=== PATIENT | female | born 1945 | race Caucasian/White ===

== ENCOUNTER → 2018-09-09 07:47 | Outpatient (CLI) | payer OTHER, SELFPAY ==
--- NOTE | 2018-09-09 08:43 | US_ITS ---
PROCEDURE: ULTRASOUND GUIDED LEFT THYROID FNA/BIOPSY. DATE: September 09, 2018. INDICATION: Female, 73 years old. Thyroid nodules. PHYSICIAN: Stanley Mcdermott M.D. MEDICATIONS: 2% lidocaine administered subcutaneously for local anesthesia. ACCESS SITE: Left - anterior approach. NEEDLE: 25-gauge FNA needle. SPECIMEN: Multiple FNA specimen collected and given to pathology. EBL: None. COMPLICATIONS: None immediate. PROCEDURE: The risks, benefits, and alternatives to the procedure were explained to the patient. The specific risk of hemorrhage requiring further treatment or intervention was detailed and accepted. Written informed consent was obtained. The patient was brought into the ultrasound room and placed in the supine position on the stretcher. An appropriate entry site was identified. The overlying skin was prepped and draped in the usual sterile fashion. 2% lidocaine was administered subcutaneously for local anesthesia. Under ultrasound guidance, a 25-gauge FNA needle was advanced into the lesion. Aspiration was performed and the needle was withdrawn. A total of 3 passes were performed with specimen collected and given to the pathologist who was present during the procedure. Hemostasis was achieved with manual compression. Repeat ultrasound images of the biopsy area was performed which demonstrated no gross bleeding or hematoma. An antibiotic ointment dressing was placed and the patient was given an icepack. The patient tolerated the procedure well without immediate complications. The patient was discharged in stable condition. US/FNA 1st Biopsy w/ US IMPRESSION: Successful ultrasound-guided left thyroid nodule FNA/biopsy, as described above. Electronically Signed: Stanley Mcdermott, at 10:27 EDT , Service support ,
--- NOTE | 2018-09-09 09:20 | ASPIG_PTH ---
PATIENT: MARICRUZ MACKENZIE LOC: [facility] [[email or web address]]#:[id number] AGE/SX: 79/F ROOM: RE09/09/[address]: Dr. Joesph Garcia MD : 1945 BED: DIS: SPEC #: [id number] RECD: 09/09/18 09:40 STATUS: [place] #: [id number] ROXANNE: 09/09/18 09:[address]: Joesph Garcia DEPT: CYTOLOGY RECD BY: Jamir Harris ENTERED: 09/09/18 09:41 SP TYPE: ASP OUT OTHR DR: Joesph Garcia MD Tissues: Thyroid gland, NOS Procedures: FNA Specimen Adequacy Special Stain Group II Surgery Specimen Level IV Cytology Other HEADER OPERATION: Ultrasound-guided left lobe of thyroid biopsy PRE-OP DIAGNOSIS: Thyroid nodules TISSUE SUBMITTED: Left lobe of thyroid DIAGNOSIS CYTOLOGY Left lobe of thyroid, thyroid nodules, ultrasound-guided biopsy, direct smears and cell block: Negative for malignant cells. Follicular nodule with cystic change. Background lymphocytic thyroiditis. See cytology study. CE:alberto 09/10/18 COMMENT The specimen is evaluated at the time of biopsy by Dr. Mullins. Immediate Evaluation = Adequate for evaluation. Follicular cells and macrophages present. Case has been reviewed in consultation with Dr. Mullins who concurs with the above diagnosis. IDC:NOE CYTOLOGY STUDY Slides are reviewed. Direct smears and cell block demonstrate multiple groups of benign follicular cells. No nuclear atypia is identified. No microfollicular pattern is found. Colloid is present in the background. Histiocytes are present, compatible with cystic change. Additionally, numerous benign lymphocytes are present in the background, compatible with lymphocytic thyroiditis. CYTOLOGY GROSS Received is 0.2 ml of reddish fluid labeled with the patient's name, and designated left lobe of thyroid. Seven imprints and three paps are made from the submitted fluid and the rest is added to CytoLyt for cell block preparation. Submitted for cytology study. / AM:alberto 09/09/18 TC:3 CPT: 16565, 58091, 32686, 62935, 43686
== END ==
PROVIDERS: Family Provider Family Medicine; PCP Family Medicine; Referring Provider Family Medicine; Visit Provider Family Medicine
DX: E04.1 Nontoxic single thyroid nodule (principal); E06.3 Autoimmune thyroiditis
CPT/HCPCS: 10005; 88161; 88172; 88305; 88313

== ENCOUNTER → 2023-03-18 | Outpatient (CLI) | payer SELFPAY, OTHER ==
[2023-03-18 09:50] LABS: Anion Gap 4 (5-15); BUN 25 mg/dL (7-18); BUN/Creat Ratio 27.2 RATIO (10-20); Calcium,Total 9.3 mg/dL (8.5-10.1); Chloride 109 mmol/L (98-107); Creatinine, Serum 0.92 mg/dL (0.55-1.02); EST Glomerular Filtration Rate 63 mL/min (>60); Est Glom Filt Rate - Afr Amer 76 mL/min (>60); Glucose 129 mg/dL (74-106); Potassium 3.5 mmol/L (3.5-5.1); Sodium Level 139 mmol/L (136-145); Thyroid Stim Hormone (TSH) 6.06 uIU/mL (0.358-3.74)
--- NOTE | 2023-03-18 15:12 | STRESSREP ---
Stress Test Report Date: 03/18/2023 Procedure: Pharmacologic stress nuclear imaging study Indications: Dyspnea Consent: Per the patient Procedure: The patient underwent pharmacologic (Regadenoson 0.4mg ) evaluation with a peak heart rate of 66 beats per minute (46%predicted maximal heart rate) and a peak blood pressure of 160/72 mmHg. The baseline ECG demonstrated sinus rhythm with nonspecific ST changes. The peak pharmacologic ECG demonstrated no ischemic changes. Rare PAC noted. There was no complaint of chest discomfort during pharmacologic infusion or recovery. The patient was injected with 14.5 millicuries of technetium 99m Cardiolite and subsequently rest SPECT Cardiolite nuclear imaging was obtained in the horizontal long, vertical long, and short axis views. The patient underwent pharmacologic (Regadenoson) evaluation. The patient was injected with 0.8 millicuries of technetium 99m Cardiolite and subsequently stress SPECT Cardiolite nuclear imaging was obtained in the horizontal long, vertical long, and short axis views. A gated Cardiolite study at peak stress was obtained. The examination was stopped secondary to completion of protocol. Rest and stress SPECT Cardiolite nuclear imaging status post realignment, normalization, and attenuation correction demonstrate no fixed or reversible perfusion defects. There is end systolic thickening and brightening. The gated Cardiolite study demonstrates myocardial thickening and inward wall motion. The reported LVEF is 84%. Impression: 1. Pharmacologic (Regadenoson) evaluation 2. Peak pharmacologic ECG with no diagnostic ischemic changes. 3. No significant cardiac arrhythmias. 5. Rest and stress SPECT Cardiolite nuclear imaging demonstrate relative uniform tracer uptake and myocardial perfusion appearing within normal limits. 6. The gated Cardiolite study reports an LVEF of 84%. This note was generated with [employer] ([employer])ation software. It may contain incorrect words, spelling, and punctuation that were not noted in checking the note before signing.
== END | disposition home or self-care (01) ==
PROVIDERS: PCP Nurse Practitioner Adult Health; Referring Provider Internal Medicine Cardiovascular Disease; Visit Provider Internal Medicine Cardiovascular Disease
DX: R53.83 Other fatigue (principal); I63.9 Cerebral infarction, unspecified; I35.0 Nonrheumatic aortic (valve) stenosis; R06.02 Shortness of breath
CPT/HCPCS: 36415; 78452; 80048; 84443; 93017; A9500; A4216; J2785

== ENCOUNTER → 2024-12-10 | Outpatient (CLI) | payer OTHER, SELFPAY ==
[2024-12-10 10:50] LABS: Hematocrit 33.3 % (37-47); Hemoglobin 10.9 g/dL (12.0-15.0); Immature Granulocytes Count 0.010 X10^3/uL (0.0-0.0); Mean Corp Hgb Conc 32.7 g/dL (32-36); Mean Corpuscular Volume 96.8 fL (81-99); Mean Platelet Vol. 9.8 fl (6.2-12.0); NRBC Flagged by Analyzer 0 % (0-5); Platelet Count 231 K/mm3 (150-450); RBC Distribution Width CV 15.3 % (11.6-14.6); RBC Distribution Width SD 53.6 fl (35.1-43.9); Red Blood Count 3.44 M/mm3 (4.2-5.4); White Blood Count 4.4 K/mm3 (4.4-11.0)
[2024-12-10 11:23] LABS: AST(SGOT) 31 U/L (<=31); Alanine Aminotransfer ALT/SGPT 15 U/L (<=34); Albumin, Serum 4.3 g/dL (3.4-4.8); Alkaline Phosphatase 81 U/L (35-104); Anion Gap 12 (5-15); BUN 17 mg/dL (4-19); BUN/Creat Ratio 18.6 RATIO (10-20); Calcium,Total 9.7 mg/dL (7.6-11.0); Carbon Dioxide 22.8 mmol/L (21.0-32.0); Chloride 104 mmol/L (98-108); Cholesterol 124 mg/dL (<=200); Globulin 3.1 g/dL (2.2-4.2); Glucose 107 mg/dL (70-99); Low Density Lipoprotein Calc. 60 mg/dL; Potassium 4.8 mmol/L (3.3-5.1); Pro- Brain NATRIURETIC PEPTIDE 149 pg/mL (<=1800); Triglycerides 155 mg/dL; Very Low Density Lipoprotein 31 mg/dL (5-40); cholesterol:hdl ratio screen 3.78
== END | disposition home or self-care (01) ==
LOC: LAB 10:28
PROVIDERS: PCP Nurse Practitioner Adult Health; Referring Provider Nurse Practitioner Gerontology; Visit Provider Nurse Practitioner Gerontology
DX: R06.09 Other forms of dyspnea (principal); E78.5 Hyperlipidemia, unspecified
CPT/HCPCS: 36415; 80053; 80061; 83880; 85025

== ENCOUNTER → 2025-01-17 | Outpatient (CLI) | payer SELFPAY, OTHER ==
--- NOTE | 2025-01-17 08:45 | ECHOCS_ITS ---
Reason For Study Reason For Study: SOTELO Procedure This was a 2D Doppler, Color Flow transthoracic echocardiogram. The study was technically difficult. Contrast injection was performed. Exam performed in department. Left Ventricle Normal LV size. Mild concentric left ventricular hypertrophy. The left ventricular ejection fraction is 65 %. Stage 1 diastolic dysfunction. Right Ventricle Normal right ventricle. Atria The left and right atria are normal. Mitral Valve Moderate mitral annular calcification. Tricuspid Valve Normal tricuspid valve. Aortic Valve Mild calcific aortic valve stenosis. Mean peak gradient 16 mmHg. Valve area 1.4 cm??. Mild aortic valve regurgitation. Pulmonic Valve The pulmonic valve is not well visualized. Great Vessels Normal sized aortic root. Pericardium/Pleural No pericardial effusion. Medication 22 gauge I.V. with prn adaptor inserted into right arm. Diluted definity 2ml given slow IV push to enhance endocardial definition. MMode/2D Measurements & Calculations LVIDd: 4.7 cm IVSd: 1.2 cm LVOT diam: 2.0 cm LVIDs: 3.3 cm LVPWd: 1.2 cm RVDd: 2.7 cm FS: 30.6 % LVOT area: 3.2 cm2 Ao root diam: 3.5 cm LAV(MOD-bp): 40.5 ml LVAd ap4: 29.6 cm2 LAV(MOD-bp) Indexed: 22.7 ml/m2 LVLd ap4: 7.9 cm LAV(MOD-sp2): 39.1 ml EDV(MOD-sp4): 91.6 ml LAV(MOD-sp4): 40.8 ml EDV(sp4-el): 94.3 ml LVAs ap4: 15.4 cm2 LVLs ap4: 6.9 cm ESV(MOD-sp4): 30.1 ml ESV(sp4-el): 29.2 ml EF(MOD-sp4): 67.2 % EF(sp4-el): 69.0 % SV(MOD-sp4): 61.6 ml SV(sp4-el): 65.1 ml LA A4 area: 16.1 cm2 SI(MOD-sp4): 34.5 ml/m2 LA dimension(2D): 3.3 cm RA A4 area: 9.0 cm2 TAPSE: 2.4 cm Time Measurements MV dec time: 0.41 sec Doppler Measurements & Calculations MV E max manuel: 82.1 cm/sec Lat Peak E' Manuel: 7.2 cm/sec Med Peak E' Manuel: 8.8 cm/sec MV A max manuel: 135.2 cm/sec E/E' lat: 11.5 E/E' med: 9.3 MV E/A: 0.61 MV V2 max: 155.3 cm/sec MV P1/2t max manuel: 92.3 cm/sec Ao V2 max: 272.5 cm/sec MV max P.6 mmHg MV P1/2t: 138.2 msec Ao max P.8 mmHg MV V2 mean: 68.8 cm/sec MV dec slope: 195.7 cm/sec2 Ao V2 mean: 188.6 cm/sec MV mean P.4 mmHg MVA(P1/2t): 1.6 cm2 Ao mean P.1 mmHg MV V2 VTI: 48.3 cm Ao V2 VTI: 63.9 cm MVA(VTI): 1.8 cm2 AV (velocity ratio): 0.41 DAR(I,D): 1.3 cm2 DAR(V,D): 1.4 cm2 AI max manuel: 355.9 cm/sec LV V1 max: 115.1 cm/sec SV(LVOT): 84.9 ml AI max P.7 mmHg LV V1 max P.3 mmHg LV V1 mean P.9 mmHg AI dec slope: 127.9 cm/sec2 LV V1 mean: 79.3 cm/sec AI P1/2t: 814.7 msec LV V1 VTI: 26.4 cm ECHO/Echo Complete W/ Contrast Interpretation Summary Mild concentric left ventricular hypertrophy. The left ventricular ejection fraction is 65 %. Stage 1 diastolic dysfunction. Moderate mitral annular calcification. Mild calcific aortic valve stenosis. Mean peak gradient 16 mmHg. Valve area 1.4 cm??. Mild aortic valve regurgitation. Ordering Physician: Olya Sheehan Referring Physician: Olya Sheehan Performed By: Ramos Castro RCS
== END | disposition home or self-care (01) ==
PROVIDERS: PCP Nurse Practitioner Adult Health; Referring Provider Nurse Practitioner Gerontology; Visit Provider Nurse Practitioner Gerontology
DX: R06.09 Other forms of dyspnea (principal)
CPT/HCPCS: 93306; Q9957; A4216; C8929

== ENCOUNTER 2025-01-20 05:42 | Day surgery (SDC) | payer SELFPAY, OTHER ==
--- NOTE | 2025-01-18 11:50 | PAT.ANESEVAL ---
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 When Was Last Pacemaker Check QUESTION #4 FULL TEXT: You/Your Family Experience fever (hyperthermia) with Anesthesia Last Oral Intake Last Oral intake: Last Oral Intake NPO since Meds taken in AM with sips of water? Meds patient instructed to take am of surgery PONV PONV - unloader operator: PONV - unloader operator Female Yes 01/17/25 11:45 HX of Motion Sickness No 01/17/25 11:45 HX of N/V After Surgery No 01/17/25 11:45 Non-Smoker Yes 01/17/25 11:45 Duration of Surgery greater No 01/17/25 11:45 than 60 minutes Number of Risk Factors 2 01/17/25 11:45 PONV Score Moderate Risk 01/17/25 11:45 Height & Weight Height & Weight: Anesthesia: Height & Weight Height 5 ft 12/10/24 07:06 Respiratory Assessment Respiratory Assessment - unloader operator: Respiratory Tract Infection Hx - unloader operator Hx Respiratory Tract Infection No 01/17/25 11:45 STOP Sleep Apnea STOP Sleep Apnea - unloader operator: STOP Sleep Apnea - unloader operator Hx Hypertension Yes 01/17/25 11:45 Hx Sleep Apnea No 01/17/25 11:45 CPAP BIPAP Do you snore loudly (louder No 01/17/25 11:45 than talking or can be heard Do you often feel tired/ No 01/17/25 11:45 fatigued/ sleepy during daytime? Has anyone observed you stop No 01/17/25 11:45 breathing during sleep? STOP Results Negative 01/17/25 11:45 QUESTION #5 FULL TEXT : Do you snore loudly (louder than talking or can be heard through closed doors)? Tobacco Use History Tobacco Use History - unloader operator: Tobacco Use History - unloader operator Tobacco Use Smoking Status Never smoker 01/17/25 11:45 Hx Tobacco Use No 01/17/25 11:45 Years Smoking Packs Smoked per Day Smoking Cessation Date was within the last 15 years Hx Smoking Cessation Date Hx Smoking Cessation Counseling Hematologic Medial History Hematologic Hx - unloader operator: Hematologic Medical Hx - circuitry negative inspector Hx of Blood Transfusion No 01/17/25 11:45 Hx of Transfusion in last 3 No 01/17/25 11:45 Months Date of Last Transfusion (if within last 3 months) Ever experience any problems No 01/17/25 11:45 with transfusion(s)? Specify any problems Hx of Preganancy in last 3 No 01/17/25 11:45 Months Nurse Filling Out Transfusion VLEHATTICA 01/17/25 11:45 & Questions: Date: 01/17/25 01/17/25 11:45 Time: 11:53 01/17/25 11:45 Patient unable to answer at this time (ie. confused, unrespo /Reproduction History /Reproductive History - unloader operator: /Reproductive Hx- unloader operator Hx Now No 01/17/25 11:45 Gestational Age (in weeks): EDC: Hx Hx Para Hx Section SAB PFSH Medical History Wears dentures Wears glasses Low iron High cholesterol Easy bruising History of GI bleed History of diverticulitis History of echocardiogram History of stress test Cardiology follow-up encounter Snoring Sciatica of right side Encephalitis Back pain Anxiety and depression Thyroid nodule Fatigue Cardiac murmur Combined hyperlipidemia Diverticulitis Colostomy in place Aortic stenosis Fibromyalgia CVA (cerebral vascular accident) TIA (transient ischemic attack) Home Medications ?Medication ?Instructions ?Recorded ?Last Taken ?Type Lactobacillus 1 cap PO DAILY 02/19/23 Unknown History acidophilus-Bifidobac.animalis 2.5 billion cell capsule (Daily Probiotic) amitriptyline 50 mg tablet 50 mg PO QHS 02/19/23 Unknown History docusate sodium 100 mg capsule 100 mg PO DAILY 02/19/23 Unknown History atorvastatin 20 mg tablet 20 mg PO QHS #30 TABLETS 09/30/23 Unknown Rx FOREVER ARTIC SEA 2 ea PO DAILY 12/10/24 Unknown History ascorbic acid (vitamin C) 500 mg 500 mg PO QDAY 12/10/24 Unknown History tablet aspirin 81 mg tablet 81 mg PO QDAY 12/10/24 Unknown History ferrous sulfate 325 mg (65 mg 325 mg PO QDAY 12/10/24 Unknown History iron) tablet losartan 50 mg tablet 50 mg PO BID This is a dose 01/06/25 Unknown Rx increase #180 tabs Allergy/AdvReac Type Severity Reaction Status Date / Time No Known Allergies Allergy Verified 01/17/25 11:41 Family History (Reviewed 12/10/24 @ 13:11 by Olya Sheehan CONDUCTOR SYMPHONIC ORCHESTRA, CONDUCTOR SYMPHONIC ORCHESTRA-C) Father Cancer Diabetes Myocardial infarction Heart disease Heart failure CVA (cerebral vascular accident) Mother Hypertension Chronic mental illness Rheumatic fever CVA (cerebral vascular accident) Brother Hypertension Myocardial infarction Heart disease Son Seizures Surgical History Hx of tubal ligation Hx of cholecystectomy (~2001) S/P appendectomy (~07/2013) Hx of colostomy (~07/14/13) Hx of resection of small bowel (~12/15/13) Social History (Reviewed 12/10/24 @ 13:11 by Olya Sheehan CONDUCTOR SYMPHONIC ORCHESTRA, CONDUCTOR SYMPHONIC ORCHESTRA-C) Smoking Status: Never smoker alcohol intake: never substance use type: does not use caffeine: Yes Type: coffee Number of servings: 1 Audit: Pertinent Findings Pertinent Findings EKG Perinent findings: 02/24/2023. Sinus rhythm. Within normal limits. Echo (EF%) pertinent findings: 01/17/2025. EF 65% mild calcific aortic valve stenosis. Mean peak gradient 16. Valve area approximately 1.4 cm. Consult pertinent findings: Cardiology 12/10/2024. Aortic stenosis. Chronic. Mild to moderate. Check echocardiogram to reassess. Hypertension chronic stable. History of CVA. Chronic. Continue Plavix. Recommendation Anesthesia Recommendation Anesthesia recommendation: OPTIMIZED for anesthesia
[2025-01-20] VITALS (8 sets, daily range): BP systolic 142–166; BP diastolic 52–61; PULSE 53–62; RESP 16–18; TEMP 36.4–36.6; O2SAT 98–100; BMI 36.8
[2025-01-20] MEDS: Lactated Ringers 1,000 ML 15 ML IV (06:29)
--- NOTE | 2025-01-20 06:37 | PCM.HP.STD ---
HPI - General General Date of Admission: 01/20/25 Date of Service: 01/20/25 Chief Complaint: GI bleed HPI Narrative MARICRUZ MACKENZIE, is a 79 F who presents [ MARICRUZ MACKENZIE, is a 79 F who presents after recent [facility] discharge on 09.25.24 GIB. PMHx: diastolic dysfunction grade I, stroke, aortic valve stenosis, colostomy placed d/t diverticulitis(not reversible d/t scar tissue),sm bowel resection w/appy d/t diverticular stricture,danii,anx/dep,thyroid nodule, sciatica. Noted bleeding from her ostomy 09.20.24. 09.22.24 Abd/pelvis CT-small bowel and distal colon resection with patulous lower abdominal small bowel anastomoses. LLQ colostomy and oversewn rectum Jono pouch. Moderate amount of stool in the colon. 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 She has anterior wall swelling multifocal small fat-containing ventral hernias. 09.24.24 Colonoscopy completed using upper endoscope, as pediatric colonoscope would not pass peristomal hernia. Hernia reduced, colonoscopy completed without locating source of bleeding. Multiple polyps seen but removed due to recent episodes of bleeding. Random biopsy PATH:multiple fragments of tubulovillous adenoma She started oozing blood from stoma just before D/C on 09.24.24, STAT CT bleed scan did not show any obvious bleed; some mild hyperenhancement around stoma suggesting inflammation. 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 [place] recommended transfer to a facility able to do a small bowel capsule, but she wanted to go home. Plavix was stopped, she was placed on low dose aspirin. She has stated that she does not want aggressive treatment, thinking additional workup is not needed and wants GI doctor closer to home. She reports fatigue and shortness of breath. She wishes to feel better soon so that she can ge back to fishing. She denies seeing any further blood from her stoma. She denies difficulty chewing and swallowing, cough, throat clearing, sinus drainage, heartburn, reflux, abdominal pain, bloating, constipation, diarrhea. When questioned about how aggressive she wants to be with treating any bleeding areas that may be found, she replied, I want the bleeding to be stopped if we can, but I don't want opened up to do it. Her daughter is present for exam and is in agreement. She does mention that the blood seen oozing from her stoma was bright red. [facility] Medical History Wears dentures Wears glasses Low iron High cholesterol Easy bruising History of GI bleed History of diverticulitis History of echocardiogram History of stress test Cardiology follow-up encounter Snoring Sciatica of right side Encephalitis Back pain Anxiety and depression Thyroid nodule Fatigue Cardiac murmur Combined hyperlipidemia Diverticulitis Colostomy in place Aortic stenosis Fibromyalgia CVA (cerebral vascular accident) TIA (transient ischemic attack) Home Medications ?Medication ?Instructions ?Recorded ?Last Taken ?Type Lactobacillus 1 cap PO DAILY 02/19/23 01/16/25 History acidophilus-Bifidobac.animalis 2.5 billion cell capsule (Daily Probiotic) amitriptyline 50 mg tablet 50 mg PO QHS 02/19/23 01/19/25 History docusate sodium 100 mg capsule 100 mg PO DAILY 02/19/23 01/19/25 History atorvastatin 20 mg tablet 20 mg PO QHS #30 TABLETS 09/30/23 01/19/25 Rx FOREVER ARTIC SEA 2 ea PO DAILY 12/10/24 01/19/25 History ascorbic acid (vitamin C) 500 mg 500 mg PO QDAY 12/10/24 01/16/25 History tablet aspirin 81 mg tablet 81 mg PO QDAY 12/10/24 01/16/25 History ferrous sulfate 325 mg (65 mg 325 mg PO QDAY 12/10/24 01/16/25 History iron) tablet losartan 50 mg tablet 50 mg PO BID This is a dose 01/06/25 01/20/25 Rx increase #180 tabs Allergy/AdvReac Type Severity Reaction Status Date / Time No Known Allergies Allergy Verified 01/20/25 06:15 Family History Father Cancer Diabetes Myocardial infarction Heart disease Heart failure CVA (cerebral vascular accident) Mother Hypertension Chronic mental illness Rheumatic fever CVA (cerebral vascular accident) Brother Hypertension Myocardial infarction Heart disease Son Seizures Surgical History Hx of tubal ligation Hx of cholecystectomy (~2001) S/P appendectomy (~07/2013) Hx of colostomy (~07/14/13) Hx of resection of small bowel (~12/15/13) Social History Smoking Status: Never smoker alcohol intake: never substance use type: does not use caffeine: Yes Type: coffee Number of servings: 1 ROS Constitutional Constitutional: Denies fatigue, fever(s), poor appetite, weight gain or weight loss Gastrointestinal Gastrointestinal: Denies belching, bloating, change in bowel habits, change in stool character, chewing difficulty, coffee ground emesis, constipation, cramping, diarrhea, dyspepsia, dysphagia, early satiety, excessive flatus, fecal incontinence, heartburn, hematemesis, hematochezia, hemorrhoids, loose stools, melena, nausea, odynophagia, rectal bleeding, tenesmus, vomiting or weight changes Vital Signs Vital Signs Vital Signs: 01/20/25 06:17 01/20/25 06:17 Temperature 97.5 F L Temperature Source Temporal Pulse Rate 62 Respiratory Rate 18 Respiratory Pattern Normal Blood Pressure 166/52 H Blood Pressure Mean 90 Blood Pressure Source Monitor Blood Pressure Position Sitting Blood Pressure Location Left Arm Pulse Ox 98 Oxygen Delivery Method Room Air Weight Weight: 188 lb 7.924 oz Body Mass Index (BMI) 36.8 Physical Exam Const alert, oriented x3, no apparent distress and healthy appearing General Appearance: cooperative GI normal to inspection, nondistended, normoactive bowel sounds, soft to palpation, non-tender and non-distended Percussion: normal to percussion Rectal Exam: deferred Assessment & Plan Assessment/Plan (1) GIB (gastrointestinal bleeding): QUALIFIERS: GI bleed type/associated pathology: unspecified gastrointestinal hemorrhage type Qualified Code(s): K92.2 - Gastrointestinal hemorrhage, unspecified PLAN: Assessment and Plan Assessment and Plan (1) GIB (gastrointestinal bleeding): Status: Acute Qualifiers: GI bleed type/associated pathology: unspecified gastrointestinal hemorrhage type Qualified Code(s): K92.2 - Gastrointestinal hemorrhage, unspecified Plan MARICRUZ MACKENZIE, is a 79 F who presents to the office today for establishment with [facility] regarding recent [facility] discharge on 09.25.24 due to GIB per colostomy. Due to lack of any type of pain, heartburn, and reflux we are not considering an EGD at this time. increase PO iron supplement to twice daily schedule pill cam office FU 2wks after pill cam completed ]
--- NOTE | 2025-01-20 06:38 | PCM.PRE.AN2 ---
ASA Classification* ASA Classification ASA Classification: 3 Assessment & Plan Anesthesia* Anesthesia Assessment Anesthesia Assessment: Discussed sedation and/or anesthesia options, risks, benefits, and alternatives with patient/parents/legal guardian/POA. Questions invited. The patient/parents/legal guardian/POA seems to understand and agrees to proceed with anesthesia plan. Reviewed the physical assessment, medical history, allergy history and patient home medications list prior to surgery/procedure/anesthetic and documented any changes. Performed airway and anesthesia risk assessments. Anesthesia Type Anesthesia Type: MAC Anesthesia Focused Assessment* Temperature: 97.5 F Pulse Rate: 62 Blood Pressure: 166/52 Respiratory Rate: 18 Pulse Ox: 98 Airway Assessment Mouth opens: >3 cm Mallampati Score: II Labs Anesthesia Preop lab: CBC WBC, (4.4-11.0) 4.4 K/mm3 12/10/24, 10:34 RBC, (4.2-5.4) 3.44 M/mm3 L 12/10/24, 10:34 Hgb, (12.0-15.0) 10.9 g/dL L 12/10/24, 10:34 Hct, (37-47) 33.3 % L 12/10/24, 10:34 Plt Count, (150-450) 231 K/mm3 12/10/24, 10:34 CHEMISTRY Potassium, (3.3-5.1) 4.8 mmol/L 12/10/24, 10:34 Sodium, (133-145) 138 mmol/L 12/10/24, 10:34 BUN, (4-19) 17 mg/dL 12/10/24, 10:34 Creatinine, (0.70-1.20) 0.93 mg/dL 12/10/24, 10:34 Glucose, (70-99) 107 mg/dL H 12/10/24, 10:34 TSH, (0.358-3.74) 6.06 uIU/mL H 03/18/23, 08:41 COAG Pre-Assessment Diagnosis/Proposed Procedure Planned Operative Procedure(s): COLONOSCOPY Anesthesia History 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 When Was Last Pacemaker Check QUESTION #4 FULL TEXT: You/Your Family Experience fever (hyperthermia) with Anesthesia Last Oral Intake Last Oral intake: Last Oral Intake NPO since 03:00 01/20/25 06:17 Meds taken in AM with sips of Yes 01/20/25 06:17 water? Meds patient instructed to losartan 01/20/25 06:17 take am of surgery PONV PONV - threshing operator: PONV - threshing operator Female Yes 01/17/25 11:45 HX of Motion Sickness No 01/17/25 11:45 HX of N/V After Surgery No 01/17/25 11:45 Non-Smoker Yes 01/17/25 11:45 Duration of Surgery greater No 01/17/25 11:45 than 60 minutes Number of Risk Factors 2 01/17/25 11:45 PONV Score Moderate Risk 01/17/25 11:45 Height & Weight Height & Weight: Anesthesia: Height & Weight Height 5 ft 01/20/25 06:17 Weight: 85.5 kg 01/20/25 06:17 Body Mass Index (BMI) 36.8 01/20/25 06:17 Respiratory Assessment Respiratory Assessment - threshing operator: Respiratory Tract Infection Hx - threshing operator Hx Respiratory Tract Infection No 01/17/25 11:45 STOP Sleep Apnea STOP Sleep Apnea - threshing operator: STOP Sleep Apnea - threshing operator Hx Hypertension Yes 01/17/25 11:45 Hx Sleep Apnea No 01/17/25 11:45 CPAP BIPAP Do you snore loudly (louder No 01/17/25 11:45 than talking or can be heard Do you often feel tired/ No 01/17/25 11:45 fatigued/ sleepy during daytime? Has anyone observed you stop No 01/17/25 11:45 breathing during sleep? STOP Results Negative 01/17/25 11:45 QUESTION #5 FULL TEXT : Do you snore loudly (louder than talking or can be heard through closed doors)? 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 Specify any problems Hx of Preganancy in last 3 No 01/17/25 11:45 Months Nurse Filling Out Transfusion EHEWEN 01/17/25 11:45 & Questions: Date: 01/17/25 01/17/25 11:45 Time: 11:53 01/17/25 11:45 Patient unable to answer at this time (ie. confused, unrespo /Reproduction History /Reproductive History - threshing operator: /Reproductive Hx- threshing operator Hx Now No 01/17/25 11:45 Gestational Age (in weeks): EDC: Hx Hx Para Hx Section SAB Active Medications Active Medications: Current Medications Generic Name Dose Route Start Last Admin Trade Name Freq PRN Reason Stop Dose Admin Lactated Ringer's 1,000 mls @ 15 mls/hr 01/20/25 06:00 01/20/25 06:29 IV 15 mls/hr .Q48H HEATHER Administration PFSH Medical History Wears dentures Wears glasses Low iron High cholesterol Easy bruising History of GI bleed History of diverticulitis History of echocardiogram History of stress test Cardiology follow-up encounter Snoring Sciatica of right side Encephalitis Back pain Anxiety and depression Thyroid nodule Fatigue Cardiac murmur Combined hyperlipidemia Diverticulitis Colostomy in place Aortic stenosis Fibromyalgia CVA (cerebral vascular accident) TIA (transient ischemic attack) Home Medications ?Medication ?Instructions ?Recorded ?Last Taken ?Type Lactobacillus 1 cap PO DAILY 02/19/23 01/16/25 History acidophilus-Bifidobac.animalis 2.5 billion cell capsule (Daily Probiotic) amitriptyline 50 mg tablet 50 mg PO QHS 02/19/23 01/19/25 History docusate sodium 100 mg capsule 100 mg PO DAILY 02/19/23 01/19/25 History atorvastatin 20 mg tablet 20 mg PO QHS #30 TABLETS 09/30/23 01/19/25 Rx FOREVER ARTIC SEA 2 ea PO DAILY 12/10/24 01/19/25 History ascorbic acid (vitamin C) 500 mg 500 mg PO QDAY 12/10/24 01/16/25 History tablet aspirin 81 mg tablet 81 mg PO QDAY 12/10/24 01/16/25 History ferrous sulfate 325 mg (65 mg 325 mg PO QDAY 12/10/24 01/16/25 History iron) tablet losartan 50 mg tablet 50 mg PO BID This is a dose 01/06/25 01/20/25 Rx increase #180 tabs Allergy/AdvReac Type Severity Reaction Status Date / Time No Known Allergies Allergy Verified 01/20/25 06:15 Family History Father Cancer Diabetes Myocardial infarction Heart disease Heart failure CVA (cerebral vascular accident) Mother Hypertension Chronic mental illness Rheumatic fever CVA (cerebral vascular accident) Brother Hypertension Myocardial infarction Heart disease Son Seizures Surgical History Hx of tubal ligation Hx of cholecystectomy (~2001) S/P appendectomy (~07/2013) Hx of colostomy (~07/14/13) Hx of resection of small bowel (~12/15/13) Social History Smoking Status: Never smoker alcohol intake: never substance use type: does not use caffeine: Yes Type: coffee Number of servings: 1 Review of Systems (Anesthesia) ROS Narrative System reviewed and no additional complaints, except as documented.
--- NOTE | 2025-01-20 07:00 | COLBX_PTH ---
PATIENT: MARICRUZ MACKENZIE LOC: EN U#:[id number] AGE/SX: 79/F ROOM: RE01/20/[address]: Dr. Mark Lozoya DO : 1945 BED: DIS: 01/20/2025 SPEC #: [id number] RECD: 01/20/25 09:14 STATUS: B[place] JANAE #: [id number] ROXANNE: 01/20/25 07:[address]: Mark Loozya DEPT: SURGICAL PATHOLOGY RECD BY: Maame Bhatt ENTERED: 01/20/25 10:13 SP TYPE: COLON BX OTHR DR: WILLIS CROFT Tissues: A - Descending colon B - Cecum, NOS C - Transverse colon D - SPLENIC FLEXURE Procedures: Surgery Specimen Level IV HEADER OPERATION: Colonoscopy with polypectomy, APC PRE-OP DIAGNOSIS: Gastrointestinal bleeding TISSUE SUBMITTED: A- Descending colon polyp, B- Cecum polyp x3, C- Transverse colon polyp, D- Splenic flexure polyp x10 MICROSCOPIC DIAGNOSIS A. Descending colon, polyp, biopsy: Tubular adenoma B. Cecum, polyps, biopsy: Tubular adenomas C. Transverse colon, polyp, biopsy: Tubular adenoma D. Splenic flexure, polyps, biopsy: Tubular adenomas MICROSCOPIC DESCRIPTION Slides are reviewed. GROSS DESCRIPTION A. Received in fixative is one container labeled with the patient's name and designated Descending colon polyp. The specimen consists of two irregular fragments of roman tissue that measure 0.2 and 0.4 cm. The specimen is totally submitted in one cassette. B. Received in fixative is one container labeled with the patient's name and designated Cecum polyp. The specimen consists of multiple irregular fragments of roman tissue that in aggregate measure 2.2 x 1.3 x 0.2 cm. The specimen is totally submitted in one cassette. C. Received in fixative is one container labeled with the patient's name and designated Transverse colon polyp. The specimen consists of multiple irregular fragments of roman tissue that in aggregate measure 0.2 cm to 0.5 x 0.4 x 0.2cm. The resection margin of the largest fragment is inked black and it is trisected. Entirely submitted in 1 cassette. The specimen is totally submitted in one cassette. D. Received in fixative is one container labeled with the patient's name and designated Splenic flexure polyp. The specimen consists of multiple irregular fragments of roman tissue that in aggregate measure 1.2 x 1.1 x 0.5 cm. The resection margin is identifiable on 3 of the fragments and are differentially inked (black/green/nicole) and they are sectioned. Entirely submitted in 1 cassette. The specimen is totally submitted in one cassette. RI 01/20/2025 CPT:63741u1
--- NOTE | 2025-01-20 08:23 | OP.COLON_ITS ---
Patient Name: Ynes Boyle Procedure Date: 01/20/2025 7:04 AM Date of : 1945 Age: 79 Procedure: Colonoscopy Indications: Hematochezia, For therapy of adenomatous polyps in the colon Providers: Mark Lozoya DO Referring MD: Fabian Sen Medicines: Monitored Anesthesia Care Patient Profile: This is an 79 year old female. Refer to note in patient chart for documentation of history and physical. Last Colonoscopy: within the past 3 months. Complications: No immediate complications. Procedure: Pre-Anesthesia Assessment: - Prior to the procedure, a History and Physical was performed, and patient medications and allergies were reviewed. The patient is competent. The risks and benefits of the procedure and the sedation options and risks were discussed with the patient. All questions were answered and informed consent was obtained. Patient identification and proposed procedure were verified by the physician in the pre-procedure area. Mental Status Examination: alert and oriented. Airway Examination: normal oropharyngeal airway and neck mobility. Respiratory Examination: clear to auscultation. CV Examination: normal. ASA Grade Assessment: II - A patient with mild systemic disease. After reviewing the risks and benefits, the patient was deemed in satisfactory condition to undergo the procedure. The anesthesia plan was to use monitored anesthesia care (MAC). Immediately prior to administration of medications, the patient was re-assessed for adequacy to receive sedatives. The heart rate, respiratory rate, oxygen saturations, blood pressure, adequacy of pulmonary ventilation, and response to care were monitored throughout the procedure. The physical status of the patient was re-assessed after the procedure. After I obtained informed consent, the scope was passed under direct vision. Throughout the procedure, the patient's blood pressure, pulse, and oxygen saturations were monitored continuously. The Colonoscope was introduced through the sigmoid colostomy and advanced to the terminal ileum. The colonoscopy was performed without difficulty. The patient tolerated the procedure well. The quality of the bowel preparation was adequate. The ileocecal valve, appendiceal orifice, and rectum were photographed. Scope In: 7:17:09 AM Scope Withdrawal Time 0 hours 37 minutes 11 seconds Scope Out: 8:15:33 AM Total Procedure Duration Time 0 hours 58 minutes 24 seconds Findings: The perianal and digital rectal examinations were normal. A 5 mm polyp was found in the sigmoid colon. The polyp was sessile. The polyp was removed with a cold biopsy forceps. Resection and retrieval were complete. Verification of patient identification for the specimen was done. Estimated blood loss was minimal. A benign-appearing, intrinsic severe stenosis measuring 1 cm (in length) x 7 mm (inner diameter) was found in the sigmoid colon and was traversed. Ten sessile polyps were found in the splenic flexure. The polyps were 10 mm in size. These polyps were removed with a hot snare. Resection and retrieval were complete. Verification of patient identification for the specimen was done. Estimated blood loss was minimal. Two medium-sized angiodysplastic lesions with bleeding were found in the transverse colon. Coagulation for hemostasis using argon plasma at 0.5 liters/minute and 20 cordova was successful. Estimated blood loss was minimal. Seven sessile polyps were found in the cecum. The polyps were 10 mm in size. These polyps were removed with a hot snare. Resection and retrieval were complete. Verification of patient identification for the specimen was done. Estimated blood loss was minimal. Coagulation for destruction of remaining portion of lesion using argon plasma at 0.7 liters/minute and 30 cordova was successful. Estimated blood loss was minimal. Multiple small-mouthed diverticula were found in the recto-sigmoid colon and sigmoid colon. Impression: - One 5 mm polyp in the sigmoid colon, removed with a cold biopsy forceps. Resected and retrieved. - Stricture in the sigmoid colon. - Ten 10 mm polyps at the splenic flexure, removed with a hot snare. Resected and retrieved. - Two bleeding colonic angiodysplastic lesions. Treated with argon plasma coagulation (APC). - Seven 10 mm polyps in the cecum, removed with a hot snare. Resected and retrieved. Treated with argon plasma coagulation (APC). - Diverticulosis in the recto-sigmoid colon and in the sigmoid colon. Recommendation: - Discharge patient to home. - Resume previous diet. - Continue present medications. - Await pathology results. - Repeat colonoscopy in 1 year for surveillance. Procedure Code(s): --- Professional --- 88419, 59, Colonoscopy through stoma; with control of bleeding, any method 85386, Colonoscopy through stoma; with removal of tumor(s), polyp(s), or other lesion(s) by snare technique 45878, 59, Colonoscopy through stoma; with biopsy, single or multiple CPT copyright 2022 [employer]. All rights reserved. The codes documented in this report are preliminary and upon physician coder review may be revised to meet current compliance requirements. Mark Lozoya DO 01/20/2025 8:23:47 AM This report has been signed electronically. Number of Addenda: 0 Note Initiated On: 01/20/2025 7:04 AM
--- NOTE | 2025-01-20 08:24 | OP.PROVAT_ITS ---
01/20/2025 Fabian Sen Re : Colonoscopy procedure for Ynes Boyle This procedure was performed on January. My impressions and recommendations are as follows: Impressions : - One 5 mm polyp in the sigmoid colon, removed with a cold biopsy forceps. Resected and retrieved. - Stricture in the sigmoid colon. - Ten 10 mm polyps at the splenic flexure, removed with a hot snare. Resected and retrieved. - Two bleeding colonic angiodysplastic lesions. Treated with argon plasma coagulation (APC). - Seven 10 mm polyps in the cecum, removed with a hot snare. Resected and retrieved. Treated with argon plasma coagulation (APC). - Diverticulosis in the recto-sigmoid colon and in the sigmoid colon. Recommendations : - Discharge patient to home. - Resume previous diet. - Continue present medications. - Await pathology results. - Repeat colonoscopy in 1 year for surveillance. My findings are described in the full procedure note, which is enclosed. If I can be of further assistance, please feel free to contact me at . Sincerely, Mark Lozoya, 01/20/2025 8:23:47 AM This report has been signed electronically.
--- NOTE | 2025-01-20 08:28 | PCM.POST.ANE ---
Anesthesia: Postop Eval I Current Vital Signs Temperature: 97.9 F Pulse Rate: 54 Blood Pressure: 157/61 Respiratory Rate: 16 Pulse Ox: 99 Oxygen Delivery Method: Room Air Assessment Airway patent: Yes Spontaneous unlabored respirations: Yes Mental status: Awake and Calm nausea: No Vomiting: No Anesthesia Complication: No Fluid Hydration Crystalloid volume administer (ml): 900 Total IV fluid infused: 900 Progress Note Anesthesia document: Postop Eval 1 completed: Yes
== END 2025-01-20 09:22 | disposition home or self-care (01) ==
LOC: EN 05:42 → AC 05:43
PROVIDERS: PCP Nurse Practitioner Adult Health; Referring Provider Nurse Practitioner Adult Health; Visit Provider Internal Medicine Gastroenterology
PROC: 0DJD8ZZ Inspection of Lower Intestinal Tract, Via Natural or Artificial Opening Endoscopic (ICD-10-PCS; CPT 45378; principal; 2025-01-20 06:55)
DX: K55.21 Angiodysplasia of colon with hemorrhage (principal); Z93.3 Colostomy status; K56.609 Unspecified intestinal obstruction, unspecified as to partial versus complete obstruction; Z86.73 Personal history of transient ischemic attack (TIA), and cerebral infarction without residual deficits; E78.2 Mixed hyperlipidemia; K63.5 Polyp of colon; K57.30 Diverticulosis of large intestine without perforation or abscess without bleeding; Z79.899 Other long term (current) drug therapy; Z98.51 Tubal ligation status; Z90.49 Acquired absence of other specified parts of digestive tract; D12.0 Benign neoplasm of cecum
CPT/HCPCS: 44389; 44394; 44391; 88305; C1889; J2405

== ENCOUNTER → 2025-03-24 | Outpatient (CLI) | payer SELFPAY, OTHER ==
--- NOTE | 2025-03-24 10:48 | CDU_ITS ---
Reason For Study Reason For Study: Bilateral Carotid Stenosis Rt. Velocities/BP Lt. Velocities/BP Prox CCA 101.6/9.4 cm/sec. Prox CCA 100.7/15.7 cm/sec. Mid CCA 88.5/18.2 cm/sec. Mid CCA 88.5/18.2 cm/sec. Dist CCA 117.0/22.6 cm/sec. Dist CCA 93.7/20.0 cm/sec. Prox ICA 169.7/53.3 cm/sec. Prox ICA 246.6/81.8 cm/sec. Mid ICA 139.0/35.8 cm/sec. Mid ICA 237.9/52.4 cm/sec. Dist ICA 81.6/24.5 cm/sec. Dist ICA 162.4/45.4 cm/sec. Rt. ICA/CCA = 1.9. Lt. ICA/CCA = 2.8. Prox ECA 209.2/9.4 cm/sec. Prox ECA 163.1/6.0 cm/sec. Rt. Vert. 48.2/8.1 cm/sec. Lt. Vert. 119.2/27.0 cm/sec. Right Extracranial There is homogeneous, smooth atherosclerotic plaque noted in the right common carotid artery. There is heterogeneous, irregular atherosclerotic plaque noted in the right internal carotid artery. There is heterogeneous, irregular atherosclerotic plaque noted in the right external carotid artery. Antegrade flow is noted in the right vertebral artery. There is heterogeneous, irregular atherosclerotic plaque noted in the right bulb. Left Extracranial There is heterogeneous, irregular atherosclerotic plaque noted in the left common carotid artery. There is heterogeneous, irregular atherosclerotic plaque noted in the left internal carotid artery. The atherosclerotic plaque causes acoustic shadowing. There is heterogeneous, irregular atherosclerotic plaque noted in the left external carotid artery. Antegrade flow is noted in the left vertebral artery. There is heterogeneous, irregular atherosclerotic plaque noted in the left bulb. VL/Carotid Duplex Ultrasound Interpretation Summary Moderate (50-69%) stenosis right extracranial internal carotid. Severe (>70%) stenosis left extracranial internal carotid. Patent and antegrade vertebrals bilaterally. Ordering Physician: Olya Sheehan Referring Physician: Rita Boyle Performed By: Devendra Martinez RVT
== END | disposition home or self-care (01) ==
PROVIDERS: PCP Nurse Practitioner Adult Health; Referring Provider Nurse Practitioner Gerontology; Visit Provider Nurse Practitioner Gerontology
DX: I65.23 Occlusion and stenosis of bilateral carotid arteries (principal)
CPT/HCPCS: 93880